=== PATIENT | male | born 1945 | race Caucasian/White ===

== ENCOUNTER 2018-12-25 12:06 | Emergency (ER) | payer MEDICARE, OTHER ==
[~2018-12-25] VITALS: Ht 167.6 cm; Wt 71.8 kg
[2018-12-25 12:15] VITALS: BP 155/76
[2018-12-25] MEDS ORDERED: SULF1TAB49 PO (13:44)
[2018-12-25] MEDS ORDERED: CEPH-572 PO (13:44)
== END 2018-12-25 14:09 | disposition home or self-care (01) ==
LOC: ER 12:07
DX: L02.01 Cutaneous abscess of face (principal); Z79.899 Other long term (current) drug therapy
CPT/HCPCS: 10060; 99282; 99283